=== PATIENT | male | born 1970 | race Caucasian/White ===

== ENCOUNTER 2017-07-12 08:17 | Inpatient (IN) | payer SELFPAY ==
[~2017-07-12] VITALS: Ht 190.5 cm; Wt 90.7 kg
[2017-07-12] MEDS ORDERED: ONDANSETRON HCL INJ 2 MG/ML VIAL IV STA (08:46)
[2017-07-12] MEDS ORDERED: MORPHINE SULFATE 4 MG/ML SYR IV STA (08:46)
[2017-07-12] MEDS ORDERED: SODIUM CHLORIDE 0.9% 1000ML 1,000 ML IV STA (08:46)
[2017-07-12] MEDS ORDERED: VANCOMYCIN 1GM/NS 250 ML 250 ML IV STA (08:46)
[2017-07-12] MEDS ORDERED: SODIUM CHLORIDE 0.9% IV STA (08:46)
[2017-07-12] MEDS ORDERED: MORPHINE SULFATE 2 MG/ML SYR ONE (09:45)
[2017-07-12 09:50] LABS: BASOPHILS % 0.2 % (0.0-1.0); EOSINOPHILS # (AUTO) 0.1 (0.0-0.4); EOSINOPHILS % 0.5 % (0.0-6.0); HEMATOCRIT 40.2 % (38.2-49.6); LYMPHOCYTES # (AUTO) 0.9 (1.0-3.2); LYMPHOCYTES % 5.9 % (18.0-39.1); MEAN CORPUSCULAR HEMOGLOBIN 31.4 pg (28-32); MEAN CORPUSCULAR HGB CONC 34.8 g/dL (31-35); MEAN CORPUSCULAR VOLUME 90.1 fL (81-99); MONOCYTES % 6.6 % (4.4-11.3); NEUTROPHILS # (AUTO) 12.7 (2.1-6.9); NEUTROPHILS % 86.3 % (38.7-80.0); PLATELET COUNT 242 x10e3/uL (140-360); RED BLOOD COUNT 4.46 x10e6/uL (4.3-5.7); RED CELL DISTRIBUTION WIDTH 13.4 % (11.7-14.4)
--- NOTE | 2017-07-12 09:50 | Diagnostic Imaging Report ---
PROCEDURE:KNEE LEFT THREE VIEWS COMPARISON:None. INDICATIONS:LEFT KNEE ABSCESS, SWELLING, PUSS 2 DAYS FINDINGS: There are no fractures, dislocations, lytic or blastic lesions. No bony erosion. The bones are well-mineralized. Benign sclerosis of the distal femur likely represents an enchondroma or bone infarct. The soft-tissues are unremarkable. CONCLUSION: No acute bony abnormality. Jake Tao D.O. Dictated by: Jake Tao D.O. on 07/12/2017 at 9:51 Electronically approved by: Jake Tao D.O. on 07/12/2017 at 9:51
[2017-07-12 10:03] LABS: ALANINE AMINOTRANSFERASE 15 IU/L (0-55); ALBUMIN 2.9 g/dL (3.5-5.0); ALBUMIN/GLOBULIN RATIO 0.7 (0.8-2.0); ALKALINE PHOSPHATASE 64 IU/L (40-150); ANION GAP 11.7 mmol/L (8-16); BLOOD UREA NITROGEN 12 mg/dL (7-26); BUN/CREATININE RATIO 11 (6-25); CALCIUM 9.2 mg/dL (8.4-10.2); CARBON DIOXIDE 26 mmol/L (22-29); CHLORIDE 97 mmol/L (98-107); CREATININE, SERUM 1.14 mg/dL (0.72-1.25); EST GLOMERULAR FILTRATION RATE > 60 ML/MIN (60-); GLUCOSE 105 mg/dL (74-118); POTASSIUM 3.7 mmol/L (3.5-5.1); SODIUM 131 mmol/L (136-145)
[2017-07-12 10:05] LABS: AMPHETAMINES SCREEN,URINE POSITIVE (NEGATIVE); BENZODIAZEPINES SCREEN,URINE NEGATIVE (NEGATIVE); PHENCYCLIDINE SCREEN,URINE NEGATIVE (NEGATIVE)
[2017-07-12 10:12] LABS: CLARITY,URINE CLEAR (CLEAR); COLOR,URINE YELLOW (YELLOW); LEUKOCYTE ESTERASE ,URINE NEGATIVE (NEGATIVE); NITRITE,URINE NEGATIVE (NEGATIVE); PROTEIN,URINE DIPSTICK 2+ (NEGATIVE)
[2017-07-12 10:13] LABS: BACTERIA,URINE RARE /HPF; EPITHELIAL CELLS,URINE RARE /LPF; WBC,URINE (MAN) 0-5 /HPF (0-5)
[2017-07-12 10:14] LABS: KETONES,URINE NEGATIVE (NEGATIVE); URINE UROBILINOGEN 0.2 mg/dL (0.2 - 1)
[2017-07-12 10:15] LABS: BILIRUBIN,URINE 1+ (NEGATIVE)
[2017-07-12] MEDS: SODIUM CHLORIDE 0.9% 1000ML 1,000 ML IV SCH ×2 (10:38→16:00)
[2017-07-12] MEDS ORDERED: ONDANSETRON HCL INJ 2 MG/ML VIAL IV PRN (10:45)
--- OUTSIDE RECORDS SUMMARY | 2017-07-12 11:04 | XMS REPORT ---
Author [facility] Address Unknown Phone Unavailable Care Team Providers Care Faculty Head Name Role Phone ALLEN DELACRUZ Unavailable Unavailable Problems This patient has no known problems. Allergies, Adverse Reactions, Alerts This patient has no known allergies or adverse reactions. Medications This patient has no known medications. 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 INDICATIONS: LEFT KNEE ABSCESS, SWELLING, PUSS 2 DAYS FINDINGS: There are no fractures, dislocations, lytic or blastic lesions. No bony erosion. The bones are well-mineralized. Benign sclerosis of the distal femur likely represents an enchondroma or bone infarct. The soft- tissues are unremarkable. CONCLUSION: No acute bony abnormality. Susie aTo D.O. Dictated by: Susie Tao D.O. on 07/12/2017 at 9:51 Electronically approved by: Susie Tao D.O. on 07/12/2017 at 9:51 Dictated By: SUSIE TAO DO 0 Transcribed By: KASHIF on 07/12/17950 COPY TO: RADHA HERNANDEZ NP
[2017-07-12] MEDS ORDERED: DIPHTH/TETANUS/ACEL. PERTUSSIS 0.5 ML SYR IM ONE ×2 (12:45→19:00)
[2017-07-12 15:50] VITALS: BP 123/83
[2017-07-12] MEDS: MORPHINE SULFATE 2 MG/ML SYR IV PRN ×2 (16:00→20:01)
[2017-07-12] MEDS: PIPER-TAZ 3.375 GM 50 ML IV SCH ×2 (16:00→22:18)
[2017-07-12 16:26] VITALS: BP 123/83
[2017-07-12] MEDS ORDERED: NICOTINE PATCH1 EACH (16:39)
[2017-07-12] MEDS ORDERED: ADDERALL 30 MG30 MG PO (16:39)
[2017-07-12] MEDS ORDERED: POLYETHYLENE GLYCOL 3350 17 GM PACK PO PRN (17:00)
[2017-07-12] MEDS: DOCUSATE SODIUM 100 MG CAP PO SCH (17:00)
[2017-07-12] MEDS ORDERED: ALBUTEROL/IPRATROPIUM 3 ML NEB NEB PRN (17:30)
[2017-07-12] MEDS: ASCORBIC ACID 500 MG TAB PO SCH (18:27)
[2017-07-12] MEDS: MAGNESIUM OXIDE 400 MG TAB PO SCH (18:27)
[2017-07-12] MEDS: ZINC SULFATE 220 MG CAP PO SCH (18:27)
[2017-07-12] MEDS: LORATADINE 10 MG TAB PO SCH (18:27)
[2017-07-12] MEDS: ALBUTEROL/IPRATROPIUM 3 ML NEB NEB SCH ×2 (19:35→23:20)
--- NOTE | 2017-07-12 19:51 | History and Physical ---
PRIMARY CARE PHYSICIAN: None CHIEF COMPLAINT: Cellulitis. HISTORY OF PRESENT ILLNESS: Mr. Laws is a 46-year-old male admitted via the emergency department with complaints of left knee pain and swelling, which started approximately 4 days ago. He says he scratched it at work, and then 2 days after that he hit it with a truck door, which increased the pain. At that time, oozing pus started coming from the wound. His girlfriend used hand epidemiology internship and hydrogen peroxide on it., which did not alleviate any of his symptoms. Standing and walking made it worse. He has severe redness with red streaking and has had moderate difficulty walking. He thinks he brushed a limb or a tree at work. PAST MEDICAL HISTORY: Includes seasonal allergies, anxiety disorder for which he takes Celexa, Seroquel, gabapentin, Adderall, and clonazepam. PAST SURGICAL HISTORY: When he was age 1 and age 3, he had right eye surgery for lazy eye. Has a history of nose surgery. He states that tubes were put in his nose in each one for a few days. They were stitched in and then removed a few days later, which was done to improve his breathing. He does not know the name of the procedure. PAST FAMILY HISTORY: He was adopted, and does not know his past family history. 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 He is a single white male with a girlfriend without children. He was ambulating without difficulty prior to this. He patient smoked between half a pack to a pack per day for 25 years. He has a history of social drinking with wine. Illicits: Used some marijuana. Denies history of cocaine, amphetamines or methamphetamine use, although it is noted that he is on Adderall at home. ALLERGIES: NO KNOWN ALLERGIES. REVIEW OF SYSTEMS GENERAL: General malaise. Denies fatigue. He denies any current fever or chills. HEENT: Denies any visual complaints. Some stuffy nose. Denies sore throat. CARDIOVASCULAR: No complaints of chest pain or palpitations. No syncope or near syncope. PULMONARY: He does have some mild shortness of breath. Does not have a persistent cough, but is coughing up some phlegm. Does not know the color. GASTROINTESTINAL: Denies nausea, vomiting, diarrhea, or constipation. Last bowel movement was yesterday. GENITOURINARY: No complaints of urinary frequency, urgency or dysuria. MUSCULOSKELETAL: No complaints of back pain or joint pains. ENDOCRINE: Denies history of diabetes. HEMATOLOGY: Denies history of bleeding or bruising. ID: No known history of HIV or immunodeficiency. INTEGUMENT: Complains of left knee being swollen. Warm to touch and redness. NEUROLOGIC: Denies any focal weakness, numbness, tingling, or seizures. The patient states his pain was originally 10/10, and it is currently 6/10. PHYSICAL EXAMINATION VITAL SIGNS: Temperature 98.4, heart rate 100, blood pressure 123/83 with a MAP of 96, respiratory rate 20, oxygen saturation 99%. BMI 26.38. Weight 200 pounds. GENERAL: No acute distress. Lying supine in bed. HEENT: Pupils equal, round and reactive to light. Extraocular eye movements are intact. Oropharynx clear. Atraumatic and normocephalic. NECK: Supple. No lymphadenopathy, thyromegaly or JVD. No carotid bruit. CARDIOVASCULAR: S1 and S2. Rhythm is regular. No murmur appreciated. LUNGS: Air entry bilaterally. Lungs with mild expiratory sonorous wheezing. He has a right antecubital peripheral IV with normal saline infusing at 125 mL an hour. ABDOMEN: Bowel sounds positive. Soft and nontender. EXTREMITIES: No pitting edema of the left lower extremity but swollen. He has outpouching on the left lateral leg above the knee. There is erythema at the left lateral foot just below the knee. He has an approximately 2-inch diameter wound with pus. Left leg is larger than the right leg. NEUROLOGIC: GCS is 15. Cranial nerves II-XII are intact. Alert and oriented times 3. Nonfocal. LABORATORY DATA: WBC 14.72, hemoglobin 14, hematocrit 40.2, and platelet count 242,000. Sodium 131, potassium 3.7, chloride 97, CO2 26, anion gap 11.7, BUN 12, creatinine 1.14. GFR greater than 60. Glucose 105. Lactic acid 8.2 and calcium 9.2. Total bilirubin 0.5, AST 14, ALT 15, alkaline phosphatase 64. Total protein 6.8. Albumin 2.9. Globulin 3.9. Urinalysis completed today shows specific gravity 1.03. Urine protein 2+ and negative for ketones. Trace amount of blood. Negative for nitrites. Urine bilirubin 1+. Negative for leukocyte esterase. Rbcs 6-10, 0-5, wbcs. Rare urine bacteria. Rare epithelials cells. Urine drug screen was negative for barbiturates, phencyclidine, benzodiazepines and cocaine. It was positive for amphetamines, methamphetamines and cannabinoids. Blood cultures times 2 have been collected, as well as urine culture and wound culture. Those results are pending. Left knee 3-view x-ray was obtained, which showed no acute bony abnormality. A 12-lead EKG was obtained around 9:15 this morning, which showed sinus tachycardia with a rate of 104 beats per minute. ASSESSMENT AND PLAN 1. Cellulitis, left leg with leukocytosis and tachycardia: Rule out deep venous thrombosis. He has been started on antibiotics with vancomycin 1 g intravenously q.12 h. and Zosyn 3.375 g intravenously q.8 h. Wound healing supplements started. Wound care consult entered. Maintain nutritional support with cardiac diet. Will continue intravenous fluids of normal saline at 125 mL an hour. Pain control with morphine sulfate 4 mg intravenously q.4 h. p.r.n. We will get a venous Doppler ultrasound of the left leg to rule out deep venous thrombosis. 2. Nicotine use disorder, cigarettes, uncomplicated with productive cough: Will get a PA and lateral chest x-ray as he does have some wheezing and a productive cough. Nicotine patch. Will give a few days of DuoNebs and then make them p.r.n. Incentive spirometer protocol. 3. Anxiety disorder: Will continue the patient's Adderall. Consider psychiatry consult. 4. Hyponatremia: Sodium 131. This should improve with rehydration. 5. Hypochloremia: This should improve with rehydration with intravenous fluids. 6. Dehydration: Continue intravenous fluids. Will reassess labs in a.m. 7. Seasonal allergies: The patient states he took Claritin at home. Will restart this. 8. Prophylaxis: Will use Pepcid for peptic ulcer disease prophylaxis and heparin for deep venous thrombosis prophylaxis considering he has altered mobility. Physical therapy has been consulted to evaluate and treat. Bowel program started. DICTATED BY SEEMA TOURE NP Job#: [id number] [place]
[2017-07-12 20:00] VITALS: BP 117/69
[2017-07-12] MEDS: OYST-CAL-D 500MG TABLET PO SCH (20:01)
[2017-07-12] MEDS: VANCOMYCIN 1GM/NS 250 ML 250 ML IV SCH (20:01)
[2017-07-12] MEDS: HEPARIN SOD (PORCINE) 5,000 UNIT/ML VIAL SC SCH (20:22)
--- NOTE | 2017-07-12 21:30 | Diagnostic Imaging Report ---
EXAM: CHEST 2 VIEWS, PA and lateral INDICATION: Left knee infection, cough COMPARISON: None FINDINGS: LINES/TUBES: None LUNGS: No consolidations or edema. PLEURA: No effusions or pneumothorax. HEART AND MEDIASTINUM: Normal size and contour. BONES AND SOFT TISSUES: No acute findings. IMPRESSION: No acute thoracic abnormality. Signed by: Dr. Jo Donohue M.D. on 07/12/2017 9:26 PM
[2017-07-13] VITALS (9 sets, daily range): BP systolic 106–142; BP diastolic 58–84
[2017-07-13] MEDS: MORPHINE SULFATE 2 MG/ML SYR IV PRN ×4 (00:08→22:00)
[2017-07-13] MEDS: ALBUTEROL/IPRATROPIUM 3 ML NEB NEB SCH ×6 (03:10→23:00)
[2017-07-13] MEDS: SODIUM CHLORIDE 0.9% 1000ML 1,000 ML IV SCH ×2 (05:29→10:38)
[2017-07-13] MEDS: PIPER-TAZ 3.375 GM 50 ML IV SCH ×3 (05:29→23:30)
[2017-07-13 06:19] LABS: BASOPHILS % 0.4 % (0.0-1.0); EOSINOPHILS # (AUTO) 0.2 (0.0-0.4); EOSINOPHILS % 1.7 % (0.0-6.0); HEMATOCRIT 33.5 % (38.2-49.6); HEMOGLOBIN 11.4 g/dL (14.0-18.0); LYMPHOCYTES # (AUTO) 1.3 (1.0-3.2); LYMPHOCYTES % 11.8 % (18.0-39.1); MEAN CORPUSCULAR HEMOGLOBIN 30.8 pg (28-32); MEAN CORPUSCULAR VOLUME 90.5 fL (81-99); MONOCYTES # (AUTO) 0.8 (0.2-0.8); MONOCYTES % 7.3 % (4.4-11.3); NEUTROPHILS # (AUTO) 8.4 (2.1-6.9); NEUTROPHILS % 78.4 % (38.7-80.0); PLATELET COUNT 209 x10e3/uL (140-360); RED CELL DISTRIBUTION WIDTH 13.5 % (11.7-14.4)
[2017-07-13 06:42] LABS: MAGNESIUM 1.7 MG/DL (1.3-2.1); PHOSPHORUS 3.7 MG/DL (2.3-4.7)
[2017-07-13 06:58] LABS: ALANINE AMINOTRANSFERASE 14 IU/L (0-55); ALBUMIN 2.2 g/dL (3.5-5.0); ALBUMIN/GLOBULIN RATIO 0.7 (0.8-2.0); ALKALINE PHOSPHATASE 50 IU/L (40-150); ANION GAP 9.7 mmol/L (8-16); BLOOD UREA NITROGEN 9 mg/dL (7-26); BUN/CREATININE RATIO 11 (6-25); CALCIUM 8.4 mg/dL (8.4-10.2); CARBON DIOXIDE 28 mmol/L (22-29); CHLORIDE 100 mmol/L (98-107); CREATININE, SERUM 0.85 mg/dL (0.72-1.25); EST GLOMERULAR FILTRATION RATE > 60 ML/MIN (60-); GLUCOSE 103 mg/dL (74-118); POTASSIUM 3.7 mmol/L (3.5-5.1); SODIUM 134 mmol/L (136-145)
[2017-07-13 07:10] LABS: THYROID STIMULATING HORMONE 2.011 uIU/mL (0.350-4.940)
[2017-07-13] MEDS: DOCUSATE SODIUM 100 MG CAP PO SCH ×2 (08:05→17:33)
[2017-07-13] MEDS: ASCORBIC ACID 500 MG TAB PO SCH ×2 (08:05→17:33)
[2017-07-13] MEDS: MULTIVITAMINS/MINERALS TAB PO SCH (08:05)
[2017-07-13] MEDS: ZINC SULFATE 220 MG CAP PO SCH ×2 (08:05→17:33)
[2017-07-13] MEDS: HEPARIN SOD (PORCINE) 5,000 UNIT/ML VIAL SC SCH ×2 (08:05→22:05)
[2017-07-13] MEDS: OYST-CAL-D 500MG TABLET PO SCH ×3 (08:05→22:05)
[2017-07-13] MEDS: MAGNESIUM OXIDE 400 MG TAB PO SCH ×2 (08:05→17:33)
[2017-07-13] MEDS: NICOTINE 21 MG/EA PATCH TOP SCH (08:05)
[2017-07-13] MEDS: VANCOMYCIN 1GM/NS 250 ML 250 ML IV SCH ×2 (08:05→22:05)
[2017-07-13] MEDS: FAMOTIDINE 20 MG TAB PO SCH ×2 (08:05→17:33)
[2017-07-13] MEDS: LORATADINE 10 MG TAB PO SCH (08:05)
[2017-07-13] MEDS: D AMPHET PO SCH ×2 (09:00→17:00)
[2017-07-13] MEDS: AMPHET PO SCH ×2 (09:00→17:00)
[2017-07-13] MEDS: AMPHET ASP PO SCH ×2 (09:00→17:00)
[2017-07-13] MEDS ORDERED: HYDRALAZINE HCL 20 MG/ML VIAL IV PRN (11:00)
[2017-07-13] MEDS ORDERED: ONDANSETRON HCL INJ 2 MG/ML VIAL IV PRN (11:00)
[2017-07-13] MEDS ORDERED: ACETAMINOPHEN 325 MG TAB PO PRN (11:00)
[2017-07-13] MEDS: HYDROCODONE/APAP 5MG-325MG TAB PO PRN ×2 (11:45→19:35)
[2017-07-14] VITALS: BP 110/58
[2017-07-14] MEDS: HYDROCODONE/APAP 5MG-325MG TAB PO PRN ×3 (02:26→14:11)
[2017-07-14 04:00] VITALS: BP 104/58
[2017-07-14] MEDS: MORPHINE SULFATE 2 MG/ML SYR IV PRN ×2 (04:32→10:20)
[2017-07-14] MEDS: PIPER-TAZ 3.375 GM 50 ML IV SCH ×3 (06:46→21:32)
[2017-07-14] MEDS: ALBUTEROL/IPRATROPIUM 3 ML NEB NEB SCH ×5 (06:59→19:20)
[2017-07-14 07:47] VITALS: BP 116/72
[2017-07-14 08:15] VITALS: BP 116/72
[2017-07-14] MEDS: MULTIVITAMINS/MINERALS TAB PO SCH (08:15)
[2017-07-14] MEDS: FAMOTIDINE 20 MG TAB PO SCH ×2 (08:15→16:00)
[2017-07-14] MEDS: NICOTINE 21 MG/EA PATCH TOP SCH (08:15)
[2017-07-14] MEDS: ZINC SULFATE 220 MG CAP PO SCH ×2 (08:15→16:00)
[2017-07-14] MEDS: DOCUSATE SODIUM 100 MG CAP PO SCH ×2 (08:15→16:00)
[2017-07-14] MEDS: LORATADINE 10 MG TAB PO SCH (08:15)
[2017-07-14] MEDS: ASCORBIC ACID 500 MG TAB PO SCH ×2 (08:15→16:00)
[2017-07-14] MEDS: MAGNESIUM OXIDE 400 MG TAB PO SCH ×2 (08:15→16:00)
[2017-07-14] MEDS: OYST-CAL-D 500MG TABLET PO SCH ×3 (08:15→21:31)
[2017-07-14] MEDS: HEPARIN SOD (PORCINE) 5,000 UNIT/ML VIAL SC SCH (08:15)
[2017-07-14] MEDS: AMPHET PO SCH (09:00)
[2017-07-14] MEDS: AMPHET ASP PO SCH (09:00)
[2017-07-14] MEDS: D AMPHET PO SCH (09:00)
[2017-07-14 09:05] LABS: BASOPHILS % 0.4 % (0.0-1.0); EOSINOPHILS # (AUTO) 0.2 (0.0-0.4); EOSINOPHILS % 2.4 % (0.0-6.0); HEMATOCRIT 33.8 % (38.2-49.6); HEMOGLOBIN 11.6 g/dL (14.0-18.0); LYMPHOCYTES # (AUTO) 1.2 (1.0-3.2); LYMPHOCYTES % 12.4 % (18.0-39.1); MEAN CORPUSCULAR HEMOGLOBIN 31.4 pg (28-32); MEAN CORPUSCULAR HGB CONC 34.3 g/dL (31-35); MEAN CORPUSCULAR VOLUME 91.4 fL (81-99); MONOCYTES # (AUTO) 0.7 (0.2-0.8); MONOCYTES % 7.7 % (4.4-11.3); NEUTROPHILS # (AUTO) 7.2 (2.1-6.9); NEUTROPHILS % 76.8 % (38.7-80.0); PLATELET COUNT 233 x10e3/uL (140-360)
[2017-07-14 09:22] LABS: ANION GAP 9.3 mmol/L (8-16); BLOOD UREA NITROGEN 5 mg/dL (7-26); BUN/CREATININE RATIO 6 (6-25); CALCIUM 8.7 mg/dL (8.4-10.2); CARBON DIOXIDE 30 mmol/L (22-29); CHLORIDE 99 mmol/L (98-107); CREATININE, SERUM 0.81 mg/dL (0.72-1.25); EST GLOMERULAR FILTRATION RATE > 60 ML/MIN (60-); GLUCOSE 96 mg/dL (74-118); MAGNESIUM 1.9 MG/DL (1.3-2.1); POTASSIUM 4.3 mmol/L (3.5-5.1); SODIUM 134 mmol/L (136-145)
[2017-07-14] MEDS: VANCOMYCIN 1GM/NS 250 ML 250 ML IV SCH (10:00)
[2017-07-14] MEDS ORDERED: VANCOMYCIN HCL 1.25 GM in SODIUM CHLORIDE 0.9% 250ML 300 ML IV SCH (10:45)
[2017-07-14] MEDS ORDERED: LORAZEPAM 0.5 MG TAB PO PRN (11:00)
[2017-07-14] MEDS: HYDROMORPHONE 1MG/1ML INJ IV PRN ×3 (15:10→21:31)
--- NOTE | 2017-07-14 16:30 | Consultation ---
DATE OF CONSULTATION: July 14, 2017 SURGICAL CONSULTATION REFERRING PHYSICIAN: Dr. Alvarado. HISTORY OF PRESENT ILLNESS: Patient is a 46-year-old male admitted to the hospital with complaints of pain and swelling in his left knee. He said it started as a small pimple and then he scratched it on his car door and then it got progressively worse with redness and swelling and now with some necrotic tissue and increased pain. The patient has been in the hospital on IV antibiotics for 3 days, but symptoms have worsened. Patient has not had similar problems in the past. He has not had any fever. PAST MEDICAL HISTORY: Significant for anxiety for which he takes Celexa, Seroquel, gabapentin, Adderall and clonazepam. PREVIOUS SURGERY: On his nose and right eye, tubes in his ears, but nothing for many years. ALLERGIES: HE HAS NO KNOWN ALLERGIES. MEDICATIONS: Listed in the chart. FAMILY HISTORY: Noncontributory. It is unavailable as the patient was adopted. 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 Occasionally he drinks wine. He smokes about a half a pack to a pack a day of cigarettes. REVIEW OF SYSTEMS: As stated above, otherwise was negative. PHYSICAL EXAMINATION GENERAL: The patient is awake and alert. VITAL SIGNS: Normal. HEENT: Reveals no scleral icterus. NECK: Has no masses. LUNGS: Equal breath sounds are clear bilaterally. CARDIAC: Regular rate and rhythm with no murmur. ABDOMEN: Soft. There is no tenderness, no mass, no organomegaly. EXTREMITIES: In the left leg there is an area of erythema on the lateral aspect at knee level with a central area where there appears to be somewhat devitalization of skin. There is no definite drainage noted. There is mild fluctuance. There is slight edema at the ankle. Peripheral pulses are not definitely palpable. LAB TESTS: The white blood cell count today is 9.3, which is down from 14.7 on admission. Hemoglobin and hematocrit are normal. Chemistries are essentially normal. ASSESSMENT: This is a 46-year-old male with cellulitis, probable abscess in the left knee area. PLAN: Incision and drainage to be done tomorrow. Procedure was explained to the patient including risks, benefits and alternatives. There do not appear to be any signs of a necrotizing infection at this time. Thank you for asking me to Mr. Laws. Job#: [id number] [place]
[2017-07-14 20:00] VITALS: BP 120/75
[2017-07-14 21:30] VITALS: BP 120/75
[2017-07-14] MEDS: VANCOMYCIN HCL 1.25 GM in SODIUM CHLORIDE 0.9% 250ML 300 ML IV SCH (22:16)
[2017-07-15] VITALS (7 sets, daily range): BP systolic 116–129; BP diastolic 56–85
[2017-07-15] MEDS: HYDROMORPHONE 1MG/1ML INJ IV PRN ×6 (00:37→21:58)
[2017-07-15 06:16] LABS: BASOPHILS # (AUTO) 0.1 (0.0-0.1); BASOPHILS % 0.8 % (0.0-1.0); EOSINOPHILS # (AUTO) 0.4 (0.0-0.4); EOSINOPHILS % 4.1 % (0.0-6.0); HEMATOCRIT 34.5 % (38.2-49.6); HEMOGLOBIN 11.6 g/dL (14.0-18.0); LYMPHOCYTES # (AUTO) 1.6 (1.0-3.2); LYMPHOCYTES % 17.4 % (18.0-39.1); MEAN CORPUSCULAR HEMOGLOBIN 31.2 pg (28-32); MEAN CORPUSCULAR HGB CONC 33.6 g/dL (31-35); MEAN CORPUSCULAR VOLUME 92.7 fL (81-99); MONOCYTES # (AUTO) 0.7 (0.2-0.8); MONOCYTES % 7.2 % (4.4-11.3); NEUTROPHILS # (AUTO) 6.4 (2.1-6.9); NEUTROPHILS % 69.8 % (38.7-80.0); PLATELET COUNT 259 x10e3/uL (140-360); RED BLOOD COUNT 3.72 x10e6/uL (4.3-5.7); RED CELL DISTRIBUTION WIDTH 14.1 % (11.7-14.4)
[2017-07-15] MEDS: PIPER-TAZ 3.375 GM 50 ML IV SCH ×3 (06:41→22:01)
[2017-07-15 06:59] LABS: ANION GAP 10.6 mmol/L (8-16); BLOOD UREA NITROGEN 8 mg/dL (7-26); BUN/CREATININE RATIO 10 (6-25); CALCIUM 9.1 mg/dL (8.4-10.2); CARBON DIOXIDE 31 mmol/L (22-29); CHLORIDE 99 mmol/L (98-107); CREATININE, SERUM 0.83 mg/dL (0.72-1.25); EST GLOMERULAR FILTRATION RATE > 60 ML/MIN (60-); GLUCOSE 71 mg/dL (74-118); MAGNESIUM 2.1 MG/DL (1.3-2.1); POTASSIUM 4.6 mmol/L (3.5-5.1); SODIUM 136 mmol/L (136-145)
[2017-07-15] MEDS: FAMOTIDINE 20 MG TAB PO SCH ×2 (07:30→17:52)
[2017-07-15] MEDS: MAGNESIUM OXIDE 400 MG TAB PO SCH ×2 (08:58→17:52)
[2017-07-15] MEDS: DOCUSATE SODIUM 100 MG CAP PO SCH ×2 (08:58→17:52)
[2017-07-15] MEDS: ASCORBIC ACID 500 MG TAB PO SCH ×2 (08:58→17:52)
[2017-07-15] MEDS: OYST-CAL-D 500MG TABLET PO SCH ×3 (08:58→21:10)
[2017-07-15] MEDS: ZINC SULFATE 220 MG CAP PO SCH ×2 (08:58→17:52)
[2017-07-15] MEDS: VANCOMYCIN HCL 1.25 GM in SODIUM CHLORIDE 0.9% 250ML 300 ML IV SCH ×2 (10:24→22:36)
[2017-07-15] MEDS ORDERED: BACITRACIN 50,000 UNIT VIAL ONE (13:43)
[2017-07-15] MEDS ORDERED: MORPHINE SULFATE 5 MG/ML VIAL IV PRN (15:45)
[2017-07-15] MEDS ORDERED: HYDROCODONE/APAP 7.5MG-325MG 1 EA TAB PO PRN (15:45)
[2017-07-15] MEDS ORDERED: MORPHINE SULFATE 2 MG/ML SYR IV PRN (16:00)
[2017-07-15] MEDS ORDERED: FENTANYL CITRATE/PF 100MCG/2 ML INJ ONE ×2 (16:25→18:12)
--- NOTE | 2017-07-15 16:29 | Operative Report ---
DATE OF PROCEDURE: July 15, 2017 PREOPERATIVE DIAGNOSIS: Abscess, left lateral knee area. POSTOPERATIVE DIAGNOSIS: Abscess, left lateral knee area. PROCEDURE PERFORMED: Incision and drainage of abscess, left lateral knee, with excisional debridement of skin and subcutaneous tissue. PAINTER SPRAY: None. ANESTHESIA: General. INDICATIONS AND FINDINGS: Patient is a 46-year-old male who presented with complaints of pain, swelling and redness in the left knee area. At surgery there was an abscess that tracked superiorly for a distance of about 8 cm in the lateral aspect of the knee. There was some devitalized skin which was excised and some subcutaneous tissue which also appeared necrotic which was excised, approximately 20 mL of purulent fluid was drained. TECHNIQUE: After adequate general anesthesia with the patient in the supine position, the left leg was prepped and draped in sterile fashion with Orange solution. Transverse incision was made over the area of fluctuance and abscessed cavity was entered. Purulent fluid was drained and a sample was taken for culture and sensitivity. Abscess was found to track superiorly for a distance of about 8 cm. The incision was extended and some of the overlying skin appeared devitalized. An ellipse of skin was excised. There was also some necrotic subcutaneous tissue which was excised. The abscessed cavity was irrigated with saline. All loculations were broken up. It was irrigated further with saline and then packed open with 1/2 inch iodoform gauze and sterile dressing applied. Patient tolerated procedure well. Estimated blood loss was 20 mL. There were no complications. All counts were correct. Patient was taken to the recovery room in satisfactory condition. Job#: [id number] cc:KAUR JASSO MD
[2017-07-15] MEDS ORDERED: LIDOCAINE HCL 2% LOCAL INJ 5 ML SDV VIAL INJ ONE (17:38)
[2017-07-15] MEDS ORDERED: DEXAMETHASONE SOD PHOS INJ 4 MG/ML VIAL ONE (17:38)
[2017-07-15] MEDS ORDERED: ONDANSETRON HCL INJ 2 MG/ML VIAL ONE (17:38)
[2017-07-15] MEDS ORDERED: PROPOFOL IV EMULSION 10 MG/ML 20 ML VIAL ONE (17:38)
[2017-07-15] MEDS: MULTIVITAMINS/MINERALS TAB PO SCH (17:52)
[2017-07-15] MEDS: NICOTINE 21 MG/EA PATCH TOP SCH (17:52)
[2017-07-15] MEDS: LORATADINE 10 MG TAB PO SCH (17:52)
[2017-07-15] MEDS ORDERED: MIDAZOLAM HCL 2 MG/2 ML VIAL ONE (18:12)
[2017-07-16] VITALS (7 sets, daily range): BP systolic 118–133; BP diastolic 57–88
[2017-07-16] MEDS: HYDROMORPHONE 1MG/1ML INJ IV PRN ×7 (00:56→23:06)
[2017-07-16] MEDS: PIPER-TAZ 3.375 GM 50 ML IV SCH ×3 (05:17→22:15)
[2017-07-16 06:06] LABS: BASOPHILS % 0.4 % (0.0-1.0); EOSINOPHILS % 0.3 % (0.0-6.0); HEMOGLOBIN 12.6 g/dL (14.0-18.0); LYMPHOCYTES # (AUTO) 0.7 (1.0-3.2); LYMPHOCYTES % 7.2 % (18.0-39.1); MEAN CORPUSCULAR HEMOGLOBIN 31.1 pg (28-32); MEAN CORPUSCULAR HGB CONC 34.1 g/dL (31-35); MEAN CORPUSCULAR VOLUME 91.4 fL (81-99); MONOCYTES # (AUTO) 0.4 (0.2-0.8); MONOCYTES % 4.1 % (4.4-11.3); NEUTROPHILS # (AUTO) 8.8 (2.1-6.9); NEUTROPHILS % 86.8 % (38.7-80.0); PLATELET COUNT 342 x10e3/uL (140-360); RED BLOOD COUNT 4.05 x10e6/uL (4.3-5.7); RED CELL DISTRIBUTION WIDTH 13.5 % (11.7-14.4)
[2017-07-16 06:33] LABS: ANION GAP 13.9 mmol/L (8-16); BLOOD UREA NITROGEN 16 mg/dL (7-26); BUN/CREATININE RATIO 16 (6-25); CARBON DIOXIDE 26 mmol/L (22-29); CHLORIDE 97 mmol/L (98-107); CREATININE, SERUM 0.97 mg/dL (0.72-1.25); EST GLOMERULAR FILTRATION RATE > 60 ML/MIN (60-); GLUCOSE 285 mg/dL (74-118); MAGNESIUM 2.5 MG/DL (1.3-2.1); POTASSIUM 4.9 mmol/L (3.5-5.1); SODIUM 132 mmol/L (136-145)
[2017-07-16] MEDS: FAMOTIDINE 20 MG TAB PO SCH ×2 (07:30→16:54)
[2017-07-16] MEDS: ZINC SULFATE 220 MG CAP PO SCH ×2 (08:49→16:54)
[2017-07-16] MEDS: LORATADINE 10 MG TAB PO SCH (08:49)
[2017-07-16] MEDS: MULTIVITAMINS/MINERALS TAB PO SCH (08:49)
[2017-07-16] MEDS: MAGNESIUM OXIDE 400 MG TAB PO SCH ×2 (08:49→16:54)
[2017-07-16] MEDS: NICOTINE 21 MG/EA PATCH TOP SCH (08:49)
[2017-07-16] MEDS: DOCUSATE SODIUM 100 MG CAP PO SCH ×2 (08:49→16:54)
[2017-07-16] MEDS: OYST-CAL-D 500MG TABLET PO SCH ×3 (08:49→21:40)
[2017-07-16] MEDS: ASCORBIC ACID 500 MG TAB PO SCH ×2 (08:49→16:54)
[2017-07-16] MEDS: VANCOMYCIN HCL 1.25 GM in SODIUM CHLORIDE 0.9% 250ML 300 ML IV SCH ×2 (10:04→22:54)
[2017-07-17] VITALS (7 sets, daily range): BP systolic 109–145; BP diastolic 54–82
[2017-07-17] MEDS: HYDROMORPHONE 1MG/1ML INJ IV PRN ×4 (03:39→16:45)
[2017-07-17] MEDS: PIPER-TAZ 3.375 GM 50 ML IV SCH ×3 (05:42→20:20)
[2017-07-17 06:05] LABS: BASOPHILS # (AUTO) 0.1 (0.0-0.1); BASOPHILS % 0.6 % (0.0-1.0); EOSINOPHILS # (AUTO) 0.2 (0.0-0.4); EOSINOPHILS % 1.8 % (0.0-6.0); HEMATOCRIT 36.5 % (38.2-49.6); HEMOGLOBIN 12.1 g/dL (14.0-18.0); LYMPHOCYTES # (AUTO) 2.1 (1.0-3.2); LYMPHOCYTES % 18.9 % (18.0-39.1); MEAN CORPUSCULAR HEMOGLOBIN 30.5 pg (28-32); MEAN CORPUSCULAR HGB CONC 33.2 g/dL (31-35); MEAN CORPUSCULAR VOLUME 91.9 fL (81-99); MONOCYTES # (AUTO) 0.7 (0.2-0.8); MONOCYTES % 6.6 % (4.4-11.3); NEUTROPHILS # (AUTO) 7.9 (2.1-6.9); PLATELET COUNT 323 x10e3/uL (140-360); RED BLOOD COUNT 3.97 x10e6/uL (4.3-5.7); RED CELL DISTRIBUTION WIDTH 13.7 % (11.7-14.4)
[2017-07-17 06:28] LABS: ANION GAP 12.9 mmol/L (8-16); BLOOD UREA NITROGEN 14 mg/dL (7-26); BUN/CREATININE RATIO 15 (6-25); CALCIUM 8.8 mg/dL (8.4-10.2); CARBON DIOXIDE 27 mmol/L (22-29); CHLORIDE 102 mmol/L (98-107); CREATININE, SERUM 0.94 mg/dL (0.72-1.25); EST GLOMERULAR FILTRATION RATE > 60 ML/MIN (60-); GLUCOSE 129 mg/dL (74-118); PHOSPHORUS 3.4 MG/DL (2.3-4.7); POTASSIUM 3.9 mmol/L (3.5-5.1); SODIUM 138 mmol/L (136-145)
[2017-07-17 07:49] LABS: BAND NEUTROPHILS % (MANUAL) 1 %; LYMPHOCYTES % (MANUAL) 19 % (19-48); MONOCYTES % (MANUAL) 8 % (3.4-9.0); NEUTROPHILS % (MANUAL) 71 % (40-74)
[2017-07-17 07:50] LABS: PLATELET ESTIMATE ADEQUATE; PLATELET MORPHOLOGY COMMENT NORMAL; RBC MORPHOLOGY COMMENT NORMAL
[2017-07-17] MEDS: OYST-CAL-D 500MG TABLET PO SCH ×3 (09:12→20:20)
[2017-07-17] MEDS: ASCORBIC ACID 500 MG TAB PO SCH ×2 (09:12→17:20)
[2017-07-17] MEDS: FAMOTIDINE 20 MG TAB PO SCH ×2 (09:12→17:20)
[2017-07-17] MEDS: ZINC SULFATE 220 MG CAP PO SCH ×2 (09:12→17:20)
[2017-07-17] MEDS: MULTIVITAMINS/MINERALS TAB PO SCH (09:12)
[2017-07-17] MEDS: DOCUSATE SODIUM 100 MG CAP PO SCH ×2 (09:12→17:20)
[2017-07-17] MEDS: VANCOMYCIN HCL 1.25 GM in SODIUM CHLORIDE 0.9% 250ML 300 ML IV SCH (09:12)
[2017-07-17] MEDS: NICOTINE 21 MG/EA PATCH TOP SCH (09:12)
[2017-07-17] MEDS: LORATADINE 10 MG TAB PO SCH (09:12)
[2017-07-17] MEDS ORDERED: TRAMADOL HCL 50 MG TAB PO PRN (16:30)
[2017-07-17] MEDS ORDERED: VANCOMYCIN 1GM/NS 250 ML 250 ML IV STA (17:44)
[2017-07-18] MEDS ORDERED: VANCOMYCIN 1GM/NS 250 ML 250 ML IV SCH (00:01)
[2017-07-18] MEDS: VANCOMYCIN HCL 2 GM in SODIUM CHLORIDE 0.9% 500ML 500 ML IV SCH ×2 (01:08→12:26)
[2017-07-18] MEDS: HYDROMORPHONE 1MG/1ML INJ IV PRN ×2 (01:09→04:31)
[2017-07-18] MEDS: PIPER-TAZ 3.375 GM 50 ML IV SCH (06:32)
[2017-07-18 06:44] LABS: BASOPHILS # (AUTO) 0.1 (0.0-0.1); EOSINOPHILS # (AUTO) 0.3 (0.0-0.4); EOSINOPHILS % 3.3 % (0.0-6.0); HEMATOCRIT 36.2 % (38.2-49.6); HEMOGLOBIN 12.1 g/dL (14.0-18.0); LYMPHOCYTES # (AUTO) 2.2 (1.0-3.2); LYMPHOCYTES % 26.7 % (18.0-39.1); MEAN CORPUSCULAR HEMOGLOBIN 31.1 pg (28-32); MEAN CORPUSCULAR HGB CONC 33.4 g/dL (31-35); MEAN CORPUSCULAR VOLUME 93.1 fL (81-99); MONOCYTES # (AUTO) 0.5 (0.2-0.8); MONOCYTES % 5.8 % (4.4-11.3); NEUTROPHILS # (AUTO) 4.6 (2.1-6.9); NEUTROPHILS % 56.4 % (38.7-80.0); PLATELET COUNT 342 x10e3/uL (140-360); RED BLOOD COUNT 3.89 x10e6/uL (4.3-5.7)
[2017-07-18 07:00] LABS: BLOOD UREA NITROGEN 13 mg/dL (7-26); BUN/CREATININE RATIO 13 (6-25); CALCIUM 8.5 mg/dL (8.4-10.2); CARBON DIOXIDE 29 mmol/L (22-29); CHLORIDE 101 mmol/L (98-107); CREATININE, SERUM 0.97 mg/dL (0.72-1.25); EST GLOMERULAR FILTRATION RATE > 60 ML/MIN (60-); GLUCOSE 105 mg/dL (74-118); SODIUM 138 mmol/L (136-145)
[2017-07-18 07:30] VITALS: BP 129/80
[2017-07-18] MEDS: FAMOTIDINE 20 MG TAB PO SCH (08:04)
[2017-07-18] MEDS: DOCUSATE SODIUM 100 MG CAP PO SCH (08:04)
[2017-07-18] MEDS: LORATADINE 10 MG TAB PO SCH (08:04)
[2017-07-18] MEDS: ASCORBIC ACID 500 MG TAB PO SCH (08:05)
[2017-07-18] MEDS: HYDROCODONE/APAP 10MG-325MG TAB PO PRN ×2 (08:05→12:26)
[2017-07-18] MEDS: OYST-CAL-D 500MG TABLET PO SCH (08:05)
[2017-07-18] MEDS: NICOTINE 21 MG/EA PATCH TOP SCH (08:05)
[2017-07-18] MEDS: MULTIVITAMINS/MINERALS TAB PO SCH (08:05)
[2017-07-18] MEDS: ZINC SULFATE 220 MG CAP PO SCH (08:05)
[2017-07-18 08:07] VITALS: BP 129/80
[2017-07-18] MEDS ORDERED: MAGNESIUM OXIDE 400 MG TAB PO SCH (09:00)
[2017-07-18 09:30] LABS: ANISOCYTOSIS SLIGHT; EOSINOPHILS % (MANUAL) 5 % (0-7); LYMPHOCYTES % (MANUAL) 19 % (19-48); MONOCYTES % (MANUAL) 8 % (3.4-9.0); MYELOCYTES % (MANUAL) 1 % (0-0); NEUTROPHILS % (MANUAL) 64 % (40-74); PLATELET ESTIMATE ADEQUATE; PLATELET MORPHOLOGY COMMENT NORMAL; RBC MORPHOLOGY COMMENT NORMAL
[2017-07-18] MEDS ORDERED: ONDANSETRON HCL 4 MG ORAL DISINTEGRATING TAB PO PRN (10:45)
[2017-07-18 11:45] VITALS: BP 124/69
[2017-07-18] MEDS ORDERED: Multivitamins/Minerals PO (12:49)
[2017-07-18] MEDS ORDERED: ZINC SULFATE220 M1 PO (12:49)
[2017-07-18] MEDS ORDERED: BACTRIM DS TAB1 EACH PO (12:49)
[2017-07-18] MEDS ORDERED: Calcium Carbonate PO (12:49)
[2017-07-18] MEDS ORDERED: ASCORBIC ACID500 MG PO (12:49)
[2017-07-18] MEDS ORDERED: ULTRAM 50MG50 MG PO (12:49)
[2017-07-18] MEDS ORDERED: RIFAMPIN300 MG PO (12:49)
[2017-07-18] MEDS ORDERED: MAGNESIUM OXID400 MG PO (12:49)
[2017-07-18] MEDS ORDERED: TYLENOL # 31 EA PO (12:49)
--- NOTE | 2017-07-18 21:05 | Discharge Summary ---
ADMISSION DIAGNOSES 1. Cellulitis. 2. Nicotine use disorder. 3. Anxiety. 4. Hyponatremia. 5. Hypochloremia. 6. Dehydration. 7. Seasonal allergies. DISCHARGE DIAGNOSES 1. Cellulitis. 2. Nicotine use disorder. 3. Anxiety. 4. Hyponatremia. 5. Hypochloremia. 6. Dehydration. 7. Seasonal allergies. 8. Anemia. HISTORY: The patient has a history of seasonal allergies, anxiety disorder, surgical history of a right eye surgery for lazy eye, nose surgery in which tubes were placed in each naris for a few days. HOSPITAL COURSE: A 46-year-old male who complains of left knee pain and swelling that started approximately 4 days ago. He says he scratched it at work and then 2 days later hit it with a truck door, which increased the pain. On admission, the patient was started on vancomycin and Zosyn IV. Wound care consulted. The patient was started on nebs due to wheezing. Chest x-ray was done which showed no acute thoracic abnormality. X-ray of the left knee showed no acute bony abnormality. Adderall was not available and the hospital does not cover it, so the patient was switched from Adderall to lorazepam during inpatient stay. The cellulitis improved with the antibiotics IV, but he started to develop an abscess so surgery was consulted. They performed an incision and drainage of the left wound. Wound culture showed MRSA. The initial wound cultures were negative. Blood cultures were also negative. , the patient was sent home on p.o. antibiotics including Rifampin and Bactrim, both b.i.d. as well as wound care supplements and pain pills. The patient's drug screen came back for amphetamines, methamphetamines and cannabis. 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 I instructed him that it would be best for him to stay off work while his wound heals. He says that is not something that he can do. In informed him that at the very least he should make sure to keep his wound free from debris and sweat, and change the dressing multiple times a day as needed while at work. He will follow up with primary care in 1-2 weeks. The patient changed his own dressing prior to discharge so that the nursing staff could see him change it. They also sent him home with supplies to last a few . At the time of discharge, vital signs were stable. Sodium 138, potassium 4.0, creatinine of 0.97. WBC of 8.14, hemoglobin of 12.1. Hematocrit of 36.2. The patient was discharged home with family. Dictated by: Maria Del Carmen Michel NP KAUR JASSO MD Job#: [id number]
== END 2017-07-18 17:50 | disposition home or self-care (01) | DRG 571 ==
LOC: ER 08:17 → ERHOLD 11:02 → MED/SURG2 11:36
PROVIDERS: ADMIT Internal Medicine; ATTEND Internal Medicine
PROC: 0JBP0ZZ Excision of Left Lower Leg Subcutaneous Tissue and Fascia, Open Approach (ICD-10-PCS; principal; 2017-07-15 09:30)
DX: L03.116 Cellulitis of left lower limb (principal); E87.1 Hypo-osmolality and hyponatremia; E87.8 Other disorders of electrolyte and fluid balance, not elsewhere classified; E86.0 Dehydration; F41.9 Anxiety disorder, unspecified; J30.2 Other seasonal allergic rhinitis; Z72.0 Tobacco use; L02.416 Cutaneous abscess of left lower limb; D64.9 Anemia, unspecified; E83.41 Hypermagnesemia; B95.62 Methicillin resistant Staphylococcus aureus infection as the cause of diseases classified elsewhere
CPT/HCPCS: 36415; 71046; 80048; 80053; 80202; 80307; 81001; 83036; 83605; 83735; 84100; 84443; 85025; 87040; 87071; 87075; 87086; 87186; 87205; 93005; 93970; 94640; 96360; 99284; J1100; J1170; J1644; J2001; J2250; J2270; J2405; J2543; J3370; J7030; J7040; J7050